=== PATIENT | female | born 1985 | race Two or more races ===

== ENCOUNTER 2020-11-12 19:58 | Emergency (ER) | payer OTHER, MEDICAID ==
[~2020-11-12] VITALS: Ht 167.6 cm; Wt 117.9 kg
[2020-11-12 23:56] LABS: Basophils # (auto) 0 10 ^3/uL (0-0.2); Basophils % (auto) 0.4 % (0.0-2.0); Eosinophils # (auto) 0 10 ^3/uL (0-0.8); Eosinophils % (auto) 0.1 % (0.0-7.0); Hematocrit 43.5 % (36.0-46.0); Hemoglobin 14.9 g/dL (12.2-16.2); Lymphocytes # (auto) 2.4 10 ^3/uL (0.4-5.4); Lymphocytes % (auto) 33.7 % (10.0-50.0); Mean Corpuscular Hemoglobin 29.7 pg (28.0-32.0); Mean Corpuscular Hgb Conc. 34.2 g/dL (32.0-36.0); Mean Corpuscular Volume 86.6 fL (80.0-100.0); Monocytes # (auto) 0.5 10 ^3/uL (0-1.3); Monocytes % (auto) 6.9 % (0.0-12.0); Neutrophils # (auto) 4.3 10 ^3/uL (1.6-8.6); Neutrophils % (auto) 58.9 % (37.0-80.0); Red Blood Cells 5.02 10^6/uL (4.0-5.20); White Blood Cell 7.2 10^3/uL (4.4-10.8)
[2020-11-13 00:09] VITALS: BP 123/66
[2020-11-13 00:33] LABS: Albumin 3.8 g/dL (3.4-5.0); BUN/Creatinine Ratio 8.5; Potassium 3.5 mmol/L (3.5-5.1)
[2020-11-13 00:36] LABS: Bilirubin, Total 0.8 mg/dL (0.2-1.0); Total Protein 8.3 g/dL (6.4-8.2)
== END 2020-11-13 04:02 | disposition home or self-care (01) ==
LOC: ER 19:58
DX: U07.1 COVID-19 (principal)
CPT/HCPCS: 36415; 71045; 80053; 81025; 83735; 85025; 87426